=== PATIENT | male | born 1975 | race American Indian/Alaskan Native ===

== ENCOUNTER 2018-10-21 13:51 | Emergency (ER) | payer OTHER ==
[2018-10-21 14:20] VITALS: BP 128/78
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
[2018-10-21] MEDS ORDERED: IBUPROFEN PO ONE (15:10)
== END 2018-10-21 15:39 | disposition home or self-care (01) ==
LOC: ED 13:51
DX: S13.4XXA Sprain of ligaments of cervical spine, initial encounter (principal); V49.49XA Driver injured in collision with other motor vehicles in traffic accident, initial encounter; Y93.89 Activity, other specified; Y92.488 Other paved roadways as the place of occurrence of the external cause; Y99.8 Other external cause status
CPT/HCPCS: 72040